=== PATIENT | male | born 1985 | race Caucasian/White ===

== ENCOUNTER 2018-03-06 09:22 | Emergency (ER) | payer MEDICAID ==
--- NOTE | 2018-03-06 09:56 | EDPHY ---
H & P Smoking Status: Former smoker Time Seen by Provider: 03/06/18 09:37 HPI/ROS: CHIEF COMPLAINT: Left foot pain x3 days HISTORY OF PRESENT ILLNESS: 32-year-old male arrives via private vehicle complaining of left 5th metatarsal pain after he slipped in the kitchen 3 days ago. He is able to bear weight albeit with pain and an antalgic gait. Become positive ecchymosis. No paresthesia. No fall from height. PHYSICAL EXAM (Prior to examination, patient consented to physical exam, hands were washed and my usual and customary physical exam procedures followed) 1) GENERAL: Well-developed, well-nourished, alert and oriented. Appears to be in no acute distress. 2) HEAD: Normocephalic 3) HEENT: Pupils equal, round, reactive to light bilaterally. 4) LUNGS: Breathing comfortably. 5) MUSCULOSKELETAL: Tender to palpation 5th metatarsal with intact skin. No ecchymosis noted. Soft compartments. Ecchymosis to the toes noted. Proximally nontender. proximal tibia and fibula nontender . negative Choudhury test, compartments soft 6) SKIN: Intact no tenting 7) VASCULAR: DP,PT pulses and cap refill present and brisk DIFFERENTIAL DIAGNOSIS: in no particular order including but not limited to fracture, sprain, compartment syndrome Procedure: Crutches indications for crutch use discussed with patient. Patient fitted for crutches by ER staff. Observed ambulating with crutches. I think the patient has the capacity to safely use crutches. Usual and customary crutch walking precautions provided Procedure: Splint A [place] boot splint was applied by ER tax map technician. After application of the splint I returned and re-examined the patient. The splint was adequately immobilizing the joint and distal to the splint the patient's circulation and sensation were intact. Patient shows no signs of compartment syndrome. Was given orthopedic precautions. (Kam Marquez) Constitutional: Initial Vital Signs Temperature (C) 36.8 C 03/06/18 09:26 Heart Rate 84 03/06/18 09:26 Respiratory Rate 18 03/06/18 09:26 Blood Pressure 111/75 03/06/18 09:26 O2 Sat (%) 99 03/06/18 09:26 O2 Delivery Mode Room Air Allergies/Adverse Reactions: No Known Allergies Allergy (Verified 03/06/18 09:25) Home Medications: Medication Instructions Recorded Adderall 20 mg (*) 03/06/18 Ibuprofen [Motrin (*)] 600 mg PO Q6 #15 tab 03/06/18 MDM/Departure - MDM Imaging Results: Images reviewed by myself (Kam Marquez) ED Course/Re-evaluation: Care of patient under supervision of secondary supervising physician Dr Salvador . (Kam Marquez) I did not see this patient while he was in the emergency department. However his care was discussed with the PA while the patient was in the department. I agree with treatment plan and management (Omkar Salvador) - Depart Disposition: Home, Routine, Self-Care Clinical Impression: 5th metatarsal pain left Condition: Good Instructions: Foot Fracture in Adults (ED) Additional Instructions: Return to the ER immediately if you experience discoloration, have worsening pain, numbness, tingling, or any other symptoms that concern you. If you received x-rays in the emergency department today, be advised, that ligamentous , tendon, muscular, and other non-bony injury cannot be fully ruled out. Try to keep your affected extremity elevated above the level of your chest, and keep cold packs on the affected area, for the next 48 hours. Prescriptions: Ibuprofen [Motrin (*)] 600 mg PO Q6 #15 tab Referrals: Tobi Martinez DPM [Doctor of Podiatric Medicine] - As per Instructions [facility],. [Clinic] - As per Instructions Edilberto Barkley MD [Medical Doctor] - As per Instructions
[2018-03-06 10:14] VITALS: BP 118/76
--- NOTE | 2018-03-06 17:20 | ASDISCHSUM ---
Discharge Information Plan Status:Home with No Needs Medically Cleared to Leave: Discharge Date:03/06/2018 10:10 AM CM D/C Disposition:Home, Routine, Self-Care ADT D/C Disposition:Home, Routine, Self-Care Projected Discharge Date:03/06/2018 10:10 AM Transportation at D/C:None or Unknown Discharge Delay Reason: Follow-Up Date:03/06/2018 10:10 AM Discharge Slot: Final Diagnosis: Placement Information Patient Contact Information Contact Name:AMAN Relationship:Sister Address: Work Phone: City: [facility] Phone: State/[place] Code: Email: Financial Information Financial Class:Medicaid Primary Plan Desc:[employer] Primary Plan Number:[id number] Secondary Plan Desc: Secondary Plan Number: Assessment Information Intervention Information Intervention Type:Health Clinic Date of Service:03/06/2018 05:15 PM Patient Type:Emergency Room Staff Member:LUCAS Carlos Sharon Hours:0.5 Discipline:Supervisor Landscape Severity: Comment:Coordinating follow up w/ on-call podi atrist and on-call orthopedist.
== END 2018-03-06 10:10 | disposition home or self-care (01) ==
DX: S99.922A Unspecified injury of left foot, initial encounter (principal); Z87.891 Personal history of nicotine dependence; W18.40XA Slipping, tripping and stumbling without falling, unspecified, initial encounter; Y92.000 Kitchen of unspecified non-institutional (private) residence as the place of occurrence of the external cause
CPT/HCPCS: L4386

== ENCOUNTER 2018-03-14 09:10 | Day surgery (SDC) | payer MEDICAID ==
--- NOTE | 2018-03-14 09:03 | PDHPUP ---
History & Physical Update H&P update statement: This history and physical update is based on an assessment of the patient which was completed after admission or registration (within 24 hours), but prior to the surgery/procedure. H&P update: H&P reviewed & patient examined
[2018-03-14] MEDS ORDERED: ceFAZolin 2 GM/SWFI 2 GM/20 ML SYR IVP ONE (09:16)
[2018-03-14] MEDS ORDERED: LR 1,000 ML IV ONE (09:19)
[2018-03-14] MEDS ORDERED: BUPIVACAINE 0.25% 30 ML SDV ONE (09:22)
[2018-03-14] MEDS ORDERED: BACITRACIN 50,000 UNITS/10 ML SYR IRR ONE (09:22)
[2018-03-14] MEDS ORDERED: MIDAZOLAM 2 MG/2 ML VIAL ONE (09:53)
[2018-03-14] MEDS ORDERED: PROPOFOL/EMULSION 500 MG/50 ML BOTTLE IV ONE (09:54)
[2018-03-14] MEDS ORDERED: fentaNYL 100 MCG/2 ML INJ ONE (09:54)
[2018-03-14] MEDS ORDERED: LIDOCAINE 2% 5 ML SDV ONE (10:09)
[2018-03-14] MEDS ORDERED: KETOROLAC 30 MG/1 ML SDV ONE (10:09)
[2018-03-14] MEDS ORDERED: ONDANSETRON 4 MG/2 ML VIAL ONE (10:09)
--- NOTE | 2018-03-14 10:13 | PDANEPAE ---
ANE Past Medical History - Cardiovascular History Hx Hypertension: No Hx Arrhythmias: No Hx Chest Pain: No Hx Coronary Artery / Peripheral Vascular Disease: No Hx CHF / Valvular Disease: No Hx Palpitations: No - Pulmonary History Hx COPD: No Hx Asthma/Reactive Airway Disease: No Hx Recent Upper Respiratory Infection: No Hx Oxygen in Use at Home: No Hx Sleep Apnea: No Sleep Apnea Screening Result - Last Documented: Negative - Neurologic History Hx Cerebrovascular Accident: No Hx Seizures: No Hx Dementia: No - Endocrine History Hx Diabetes: No - Renal History Hx Renal Disorders: No - Liver History Hx Hepatic Disorders: No - Neurological & Psychiatric Hx Hx Neurological and Psychiatric Disorders: Yes Neurological / Psychiatric History Comment: ADD - Cancer History Hx Cancer: No - Congenital Disorder History Hx Congenital Disorders: No - GI History Hx Gastrointestinal Disorders: No - Other Health History Other Health History: NEG - Chronic Pain History Chronic Pain: No - Surgical History Prior Surgeries: WISDOM TEETH ANE Review of Systems Review of Systems: - Exercise capacity METS (RN): 5 METS ANE Patient History - Allergies Allergies/Adverse Reactions: No Known Allergies Allergy (Verified 03/06/18 09:25) - Home Medications Home Medications: Adderall 20 mg (*) 03/06/18 [Last Taken 03/13/18] - NPO status NPO Since - Liquids (Date): 03/13/18 NPO Since - Liquids (Time): 20:00 NPO Since - Solids (Date): 03/13/18 NPO Since - Solids (Time): 20:00 - Smoking Hx Smoking Status: Former smoker - Family Anes Hx Family Hx Anesthesia Complications: NEG ANE Labs/Vital Signs - Vital Signs Blood Pressure: 133/85 Heart Rate: 81 Respiratory Rate: 16 O2 Sat (%): 100 Height: 165.1 cm Weight: 58.967 kg ANE Physical Exam - Airway Neck exam: FROM Mallampati Score: Class 1 Mouth exam: normal dental/mouth exam - Pulmonary Pulmonary: no respiratory distress, no rales or rhonchi, clear to auscultation - Cardiovascular Cardiovascular: regular rate and rhythym, no murmur, rub, or gallop - ASA Status ASA Status: II ANE Anesthesia Plan Anesthesia Plan: GA w LMA
[2018-03-14] MEDS ORDERED: LR 500 ML IV PRN (10:14)
[2018-03-14] MEDS ORDERED: DEXAMETHASONE 4 MG/ML VIAL IVP PRN (10:14)
[2018-03-14] MEDS ORDERED: fentaNYL 100 MCG/2 ML INJ IVP PRN (10:14)
[2018-03-14] MEDS ORDERED: oxyCODONE IR 5 MG TAB PO PRN (10:14)
[2018-03-14] MEDS ORDERED: NALOXONE HCL 0.4 MG/ML INJ IVP PRN (10:14)
[2018-03-14] MEDS ORDERED: ONDANSETRON 4 MG/2 ML VIAL IVP PRN (10:14)
[2018-03-14] MEDS ORDERED: ACETAMINOPHEN 500 MG TAB PO PRN (10:14)
[2018-03-14] MEDS ORDERED: HYDROCODONE/APAP 5/325 TAB PO PRN (10:14)
[2018-03-14] MEDS ORDERED: ALBUTEROL 3 ML DEYVIAL IH PRN (10:14)
--- NOTE | 2018-03-14 11:35 | POSTOPPROG ---
Post Op Note Date of Operation: 03/14/18 Surgeon: Edilberto Barkley Oil Mixer: None Anesthesiologist: Armando Anesthesia: LMA Pre-op Diagnosis: Left 5th Metatarsal neck fracture Post-op Diagnosis: Same Procedure: ORIF L 5th MT Findings: Synthes 1.5mm titanium mod hand set plate and screws Inf/Abcess present in the surg proc area at time of surgery?: No EBL: Minimal Complications: None
--- NOTE | 2018-03-14 12:04 | GOP ---
[f rep st] OPERATIVE REPORT DATE OF OPERATION: 03/14/2018 SURGEON: Edilberto Barkley MD PREOPERATIVE DIAGNOSIS: Left 5th metatarsal shaft and neck fracture. POSTOPERATIVE DIAGNOSIS: Left 5th metatarsal shaft and neck fracture. PROCEDURE PERFORMED: Open reduction, internal fixation, left 5th metatarsal shaft and neck fracture. FINDINGS: Remarkable for extensive comminution. There were greater than 8 fragments of bone. The b one fragments were pieced together using a combination of interfragmentary lag screw fixation, cercla ge, and plate and screw fixation. I used the Synthes 1.5 mm modular handset for internal fixation. DESCRIPTION OF PROCEDURE: After routinely checking the patient's identification and consent, and the successful induction of LMA general anesthetic, the patient's left lower extremity was prepped and d raped in usual standard fashion. I exsanguinated the limb with Esmarch wrap, and pneumatic tournique t previously placed about the proximal left thigh was inflated to 250 mmHg. A surgical time-out was completed. A dorsal longitudinal incision over the neck and shaft of the 5th metatarsal on the left foot was carried sharply through the skin. It was spread bluntly through the subcutaneous layer. Di ssected down to the periosteum and performed a subperiosteal dissection. The fracture fragments were exposed. Initially, it appeared there were only 3 main fracture fragments. However, on the plantar surface there was extensive comminution with an additional 5-6 pieces of bone. These essentially we re matchstick style pieces. I started proximally and pieced the pieces together using a series of teena ne clamps. I then passed 2-0 FiberWire suture circumferentially around the shaft and performed a cer clage technique. I placed a 2nd cerclage distal to the 1st, to secure and essentially bundle the fra gments together. Once I had completed this, I then mated this to the metaphyseal segment. I used K- wires to provisionally hold this and then attached the plate as noted above, using standard AO techni que. This was a 1.5 mm titanium T-shaped plate. The FluoroScan unit was used to verify the fracture was satisfactory reduced and that the screws and hardware were appropriately positioned. Finding th is to be satisfactory, I irrigated the wound thoroughly with normal saline. I closed the periosteum over the plate and bone with 4-0 Vicryl suture. The subcutaneous layer was closed with 4-0 Vicryl aguilar ture, and the skin was closed with a running 5-0 nylon. Additional 0.25% Marcaine plus epinephrine w as infiltrated around the wound for postoperative comfort and assistance in hemostasis. A sterile bu lky dressing was applied, followed by a posterior plaster splint with side stirrup. The patient was transferred to the recovery area in excellent condition. He tolerated the procedure well. There wer e no complications. INDICATIONS FOR SURGERY: The patient is a 32-year-old gentleman who sustained the above injury a wee k ago. Due to the displaced nature of his fracture and it being a border digit, he is brought to the operating room for definitive surgical management. /[id number]/MODL
--- NOTE | 2018-03-14 12:09 | POSTANESTH ---
Post Anesthetic Evaluation Cardiovascular Status: Normal, Stable Respiratory Status: Normal, Stable Level of Consciousness/Mental Status: Mildly Sleepy, Arousable Pain Control: Adequate, Prn Tx Ordered Nausea/Vomiting Control: Adequate, Prn Tx Ordered Complications Possibly Related to Anesthesia: None Noted
[2018-03-14 13:21] VITALS: BP 124/85
== END 2018-03-14 13:17 | disposition home or self-care (01) ==
LOC: FSGY 09:10
PROVIDERS: ATTEND Orthopaedic Surgery Hand Surgery
PROC: 0QSP04Z Reposition Left Metatarsal with Internal Fixation Device, Open Approach (ICD-10-PCS; principal; 2018-03-14 10:30)
DX: S92.352A Displaced fracture of fifth metatarsal bone, left foot, initial encounter for closed fracture (principal); W18.40XA Slipping, tripping and stumbling without falling, unspecified, initial encounter; Y92.000 Kitchen of unspecified non-institutional (private) residence as the place of occurrence of the external cause; Y99.8 Other external cause status; Z87.891 Personal history of nicotine dependence
CPT/HCPCS: C1713; J0690; J1885; J2250; J2405; J2704; J3010